=== PATIENT | male | born 1965 | race Caucasian/White ===

== ENCOUNTER 2025-01-13 18:19 | Emergency (ER) | payer OTHER, SELFPAY ==
[2025-01-13 18:21] VITALS: BMI 38.6
[2025-01-13 19:25] VITALS: BP 160/80
[2025-01-13] MEDS: TYLENOL 650 MG PO (20:49)
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
== END 2025-01-13 22:02 | disposition home or self-care (01) ==
LOC: EMR 18:19
PROVIDERS: EMERGENCY PHYSICIAN Emergency Medicine; FAMILY PHYSICIAN Internal Medicine Geriatric Medicine
DX: S09.90XA Unspecified injury of head, initial encounter (principal); M25.511 Pain in right shoulder; Y04.0XXA Assault by unarmed brawl or fight, initial encounter; E78.00 Pure hypercholesterolemia, unspecified; G91.9 Hydrocephalus, unspecified; Z87.820 Personal history of traumatic brain injury; Z98.2 Presence of cerebrospinal fluid drainage device
CPT/HCPCS: 99284; 70450; 73030